=== PATIENT | male | born 1960 | race Caucasian/White ===

== ENCOUNTER → 2024-05-15 | Outpatient (CLI) | payer BC ==
[2024-05-15 15:03] VITALS: BP 123/75; PULSE 60; RESP 16; TEMP 98.1
--- NOTE | 2024-05-15 15:37 | P.SLEEP ---
History of Present Illness DATE: 05/15/2024 CONSULTATION/NEW PATIENT EVALUATION HISTORY OF PRESENT ILLNESS/SLEEP-WAKE EVALUATION: 63-year-old gentleman had b een evaluated in the sleep center for obstructive sleep apnea hypopnea syndrome. Patient has history of obstructive sleep apnea for 10 years. He continued to use his CPAP equipment every night for the whole night. I checked his CPAP unit. Pressure is 12 cm of water. Usage is 26 out of 30 nights. Average usage 7.6 hours per night. Leak is significantly increased to 49 L/min. Apnea hypopnea index is totally normal at 0.6 SLEEP SCHEDULE: Usually sleep schedule from 8:30 PM to 5:20 AM. FALLING ASLEEP: No problems with falling asleep. DURING SLEEP: No snoring while using CPAP. Patient may wake up from sleep once to use the restroom. No history of hypnogogical hallucinations, sleep paralysis, or cataplexy. DURING THE DAY/WAKE STATE: No significant excessive daytime sleepiness. [place] sleepiness scale is 2. Patient does not take naps. PAST MEDICAL HISTORY: Hyperlipidemia. PAST SURGICAL HISTORY: Appendectomy. MEDICATIONS: Atorvastatin. SOCIAL HISTORY: Please see below. FAMILY HISTORY: Sleep apnea. REVIEW OF SYSTEMS: No snoring with CPAP. No fevers. No double vision. No recent chest pain. No shortness of breath. No abdominal pain. No bleeding episodes. No blood in urine. No seizure episodes. PHYSICAL EXAMINATION: GENERAL: A pleasant patient without any distress. VITAL SIGNS: Please see below, weight 201 pounds, BMI 29.6. HEENT: PERRLA, EOMI. Evaluation of oropharynx showed tongue protrudes midline, low position of soft palate Mallampati 34. NECK: Supple. No JVD. Thyroid is not palpable. 16.5 inches in circumference. LUNGS: Clear to percussion and to auscultation. Good air exchange. No wheezing or rhonchi. HEART: S1, S2 regular. No murmurs, gallops or rubs. ABDOMEN: Soft and nontender. Bowel sounds are present. No organomegaly appreciated. EXTREMITIES: No clubbing or cyanosis. [employer] MACHINE OPERATOR: Awake, alert, and oriented x3. Cranial nerves 2 to 7 intact. There is no fasciculation or atrophy noted. No focal deficits observed. ASSESSMENT: 1. Obstructive sleep apnea hypopnea syndrome for 10 years. Patient continued to use his CPAP equipment every night, demonstrated great compliance with treatment, normal respiration on CPAP, no snoring on CPAP. Low position of soft palate Mallampati 34. 2. Overweight, borderline with obesity. 3. Hyperlipidemia. 4. Status post appendectomy. PLAN: 1. Prescription for all necessary CPAP supplies. 2. Patient will continue to use CPAP equipment every night for the whole night. 3. Preferable position during sleep on the side. 4. No driving if patient feels any sleepiness. Patient is aware of civil and criminal liability for unsafe driving. 5. Sleep hygiene with regular sleep time for at least 7.5-8 hours. 6. Watching weight. 7. Will get results of previous sleep studies from [facility]. 8. Follow-up visit in 8 months, or earlier if patient has any problems. Thank you very much for referring this patient for consultation. Sincerely, Jeff Chilel MD, PhD, FAASM. Diplomat of [employer], Sleep Medicine Board by [employer] Doctor of [facility] [place] cc: Jaya Payton MD Past Medical History Past Medical History: Hyperlipidemia, Sleep Apnea/CPAP/BIPAP History of Any Multi-Drug Resistant Organisms: None Reported Past Surgical History: Appendectomy Additional Past Surgical History / Comment(s): hemorrhoids Past Anesthesia/Blood Transfusion Reactions: No Reported Reaction Past Psychological History: No Psychological Hx Reported Smoking Status: Current every day smoker Past Alcohol Use History: Occasional Past Drug Use History: Marijuana - Past Family History Mother Family Medical History: Sleep Apnea/CPAP/BIPAP Additional Family Medical History / Comment(s): snoring Medications and Allergies Home Medications Medication Instructions Recorded Confirmed Type Atorvastatin [Lipitor] 20 mg PO DAILY 05/15/24 05/15/24 History Physical Exam Vitals: Vital Signs Temp Pulse Resp BP Pulse Ox 05/15/24 15:02 98.1 F 60 16 123/75 98 Intake and Output 05/15/24 05/15/24 05/15/24 06:59 14:59 22:59 Other: Weight 91.172 kg Sleep Note - Sleep Data ESS Total: 2 - Sleep Note Sleep Note: Temperature: 98.1 F Pulse Rate: 60 Respiratory Rate: 16 Blood Pressure: 123/75 SpO2: 98 Height: 5 ft 9 in Weight: 91.172 kg BMI: Neck Circumference: 16.5
== END ==
LOC: 3 N SLEEP 14:14
PROVIDERS: ATTEND Internal Medicine
DX: G47.33 Obstructive sleep apnea (adult) (pediatric) (principal); E66.3 Overweight; E78.5 Hyperlipidemia, unspecified; Z90.49 Acquired absence of other specified parts of digestive tract; Z99.89 Dependence on other enabling machines and devices; Z68.29 Body mass index [BMI] 29.0-29.9, adult
CPT/HCPCS: 99202